=== PATIENT | male | born 1960 | race Caucasian/White ===

== ENCOUNTER 2019-01-30 09:23 | Outpatient (CLI) | payer OTHER, SELFPAY ==
[2019-01-30 11:19] LABS: ALT 31 U/L (12-78); AST 23 U/L (15-37); Albumin 3.9 g/dL (3.4-5.0); Alkaline Phosphatase 54 U/L (46-116); Bilirubin, Direct 0.28 mg/dL (0.00-0.20); Bilirubin, Total 2.1 mg/dL (0.2-1.0); Total Protein 7.3 g/dL (6.4-8.2)
== END 2019-01-30 09:43 ==
PROVIDERS: PCP Emergency Medicine; Visit Provider Emergency Medicine
DX: E80.4 Gilbert syndrome (principal)
CPT/HCPCS: 36415; 80076

== ENCOUNTER 2019-04-24 07:27 | Emergency (ER) | payer OTHER, SELFPAY ==
[2019-04-24 07:34] VITALS: BP 133/79; PULSE 75; RESP 15; TEMP 36.5; O2SAT 98
--- NOTE | 2019-04-24 07:59 | ED.GENADUL_ITS ---
Discharge Plan Disposition Patient Disposition: HOME Discharge Details Chief Complaint: Orthopedic Clinical Impression: Septic bursitis of elbow, Abrasion of elbow, right, Enthesopathy of elbow Primary Care Provider: Po Key ED Provider: Zhen Hinkle Home Meds and New Rx's Prescriptions: New cephalexin [Keflex] 500 mg capsule 500 mg PO QID Qty: 55 RF: 0 Discharge Instructions Instructions: Elbow Bursitis (ED) Additional Instructions: Take full 2-week course of antibiotic as prescribed. You should take a probiotic or eat yogurt daily while on antibiotics. Please contact your primary care physician to arrange follow-up. Call today to arrange time follow-up and reassessment in a few days. Return to the ER for any worsening or new concerning symptoms. Referrals: Po Key DO [Primary Care Provider] - Javier Funes MD [ [facility] STAFF PHYSICIAN] - 1 week (Please call orthopedic office tomorrow for arrangement of follow-up) Discharge Data Discharge Date/Time-TO BE ENTERED AT DEPARTURE: 04/24/19 10:05 Medical Decision Making <Maykel Mcgovern MD - Last Filed: 05/05/19 00:22> 8:08 -- 59-year-old male presents with right elbow pain and inflammation after mechanical fall yesterday in his barn with trauma to posterior elbow including small abrasion. Patient now with swelling and erythema posterior elbow. Suspect septic olecranon bursitis. Consider fracture. Plan to obtain x-ray of the elbow. Plan to treat with Bactrim and Keflex for additional anaerobic coverage. Patient's tetanus is up-to-date per nursing. <Zhen Hinkle NP - Last Filed: 04/25/19 18:20> Patient signed out to me pending radiological imaging. Imaging reviewed along with radiologist interpretation that shows Question of a fracture through the base of the enthesophyte at the olecranon. Given concern for infection and correlating fracture did decide to re-speak with orthopedics who was consulted previously. Spoke with Dr. Funes. He came and was able to evaluate the patient and recommended that patient be placed on high-dose penicillin or first generation cephalosporin. He also recommended to stop the Bactrim and that he would follow-up with patient in 1 week. Given that Keflex is first generation cephalosporin Bactrim was stopped. Prior to me realizing this patient did get single dose of penicillin in emergency department return precautions were discussed with patient. After discussion of diagnosis and plan of care patient has no further needs, questions, or concerns and states clear understanding to return to the emergency department for any worsening symptoms. HPI <Maykel Mcgovern MD - Last Filed: 05/05/19 00:22> General Mode of arrival: ambulatory . Date/Time Provider Initiated Documentation: 04/24/19 07:41 . Limitations to Documentation: no limitations . Information obtained by: patient . HPI Narrative: 59yo m presents with chief complaint of right elbow inflammation. Patient notes yesterday he was knocked over by a cow and landed on his right elbow impacting concrete floor of barn. Elbow was immediately painful. He did sustain a small cut to his posterior elbow. Today he has noticed increased swelling and redness of his posterior elbow. Symptoms are moderate. No modifiers. No associated fever. No other injury. Related Data Home Medications Medication Instructions Recorded Confirmed cephalexin [Keflex] 500 mg PO QID #55 cap 04/24/19 04/30/19 Previous Rx's Medication Instructions Recorded cephalexin [Keflex] 500 mg PO QID #55 cap 04/24/19 Allergies Allergy/AdvReac Type Severity Reaction Status Date / Time No Known Allergies Allergy Verified 04/30/19 10:05 General Stated Complaint: Orthopedic LARRY: 3 Review of Systems <Maykel Mcgovern MD - Last Filed: 05/05/19 00:22> Constitutional Denies fever(s) Musculoskeletal Reports as per HPI Integumentary/Breasts Reports as per HPI PFSH <Maykel Mcgovern MD - Last Filed: 05/05/19 00:22> Surgical History Colonoscopy - MAC (~2009) Colonoscopy - MAC (12/23/17) Family History Mother Heart disease Myocardial infarction Stroke Father Essential hypertension Hyperlipidemia Prostate cancer Brother No problems noted. Maternal Grandfather Lung cancer Paternal Grandfather Heart disease Stroke Parkinson disease Maternal Grandmother Depression Paternal Grandmother Essential hypertension Daughter No problems noted. Daughter No problems noted. Social History Smoking/Tobacco Use Status: Never Alcohol Intake: current Alcohol Intake frequency: holidays/special occasions only Alcohol type: beer Drug use: Never Substance use type: does not use Caregiver/Support person: No Household members: spouse Housing: house Pets and animals: Yes Pets and animals: cat(s) Sexually active: Yes Do you think of yourself as: straight/heterosexual Current gender identity: male What is your relationship status?: How often do you talk on the phone with friends or family?: three or more times per week How often do you get together with friends or relatives?: decline to answer How often do you attend restorationist or mandaeism services?: 1-3 times per year Do you belong to any clubs or organized social groups?: no Panel score (0-1 are the most socially isolated patients): 2 What type of physical activity do you participate in: walking Duration: < 15 minutes/day Frequency: 1-2 times per week Mary/Yarsani: Religion Special mayr needs: No Seatbelt use: always Drive intox or ride w/intox semi truck driver: No Do you feel safe at home: Yes Do you feel safe in your relationship?: Yes Exam <Maykel Mcgovern MD - Last Filed: 05/05/19 00:22> Const General: cooperative and no acute distress HENMT Head: normocephalic Mouth: moist mucous membranes Resp Auscultation: clear to auscultation bilaterally, no rales, no rhonchi and no wheezes Cardio Rate: regular rate and not tachycardic Rhythm: regular rhythm Pulses: radial pulses present on the right 2+ Skin Wounds: wounds noted (1 cm linear healing wound posterior elbow - seems superficial) Neuro General: alert, awake and tone normal Extrem General: no edema Right upper extremity: elbow/forearm Details: tenderness Location: of the olecranon, swelling, normal ROM, warmth and distal pulses intact; no deformity Course <Maykel Mcgovern MD - Last Filed: 05/05/19 00:22> Vital Signs Temperature 36.5 C 04/24/19 07:34 Pulse 75 04/24/19 07:34 Respiratory Rate 15 04/24/19 07:34 Blood Pressure 133/79 04/24/19 07:34 Pulse Oximetry 98 04/24/19 07:34 Temperature 36.5 C 04/24/19 07:34 Temperature Source Temporal Artery Scan 04/24/19 07:34 Pulse 75 04/24/19 07:34 Respiratory Rate 15 04/24/19 07:34 Respiratory Effort Non-Labored 04/24/19 07:37 Blood Pressure 133/79 04/24/19 07:34 Blood Pressure Position Sitting 04/24/19 07:34 Pulse Oximetry 98 04/24/19 07:34 Oxygen Delivery Method Room Air 04/24/19 07:34 Oxygen Flow Rate 0 04/24/19 07:34 Pain Level 5 04/24/19 07:38 Sign Out <Maykel Mcgovern MD - Last Filed: 05/05/19 00:22> Sign Out Data: Sign Out Comment: Care signed out to Teto Hinkle NP, plan to follow-up on x-ray and disposition patient. Last updated by Maykel Mcgovern MD at 04/24/19 08:28
--- NOTE | 2019-04-24 08:09 | DI.RAD_ITS ---
SYMPTOM/DIAGNOSIS: PAIN, FALL YESTERDAY RIGHT ELBOW: Three views. There are osseous densities seen at the insertion site of the triceps at the olecranon likely reflecting enthesophyte There is a lucency seen through the base and a fracture cannot be excluded. No other fracture or dislocation is seen. Dystrophic calcifications are seen adjacent to the medial epicondyle likely reflecting old injury. No joint effusion is seen. There is subcutaneous edema seen in the soft tissues. IMPRESSION: Question of a fracture through the base of the enthesophyte at the olecranon. Please correlate with the patient's site of pain. No other fracture or dislocation is seen..
[2019-04-24] MEDS: Cephalexin 500 MG CAP PO (08:14)
[2019-04-24] MEDS: Sulfameth/Trimeth DS TAB 1 TAB PO (08:15)
--- NOTE | 2019-04-24 08:17 | NUR.NOTE ---
pt medicated as per mdo tolorating po intake Nursing Note:
[2019-04-24] MEDS: Penicillin V POTASSIUM 500 MG TAB PO (09:48)
--- NOTE | 2019-04-24 09:49 | NUR.NOTE ---
0935-pt seen by orthopedics at bedsideNursing 0950- pt medicated as per mdo Note:
[2019-04-24 10:03] VITALS: BP 133/85; PULSE 66; RESP 15; TEMP 37; O2SAT 100
== END 2019-04-24 10:05 | disposition home or self-care (01) ==
PROVIDERS: Emergency Provider Nurse Practitioner Family; PCP Emergency Medicine
DX: M71.121 Other infective bursitis, right elbow (principal); S50.311A Abrasion of right elbow, initial encounter; M77.9 Enthesopathy, unspecified; W01.0XXA Fall on same level from slipping, tripping and stumbling without subsequent striking against object, initial encounter
CPT/HCPCS: 99283; 73080

== ENCOUNTER 2020-03-17 09:00 | Outpatient (REF) | payer OTHER, SELFPAY | END 2020-03-17 09:20 | LOC: LBN 09:00 | PROVIDERS: PCP Emergency Medicine; Visit Provider Nurse Practitioner Gerontology | DX: Z12.5 Encounter for screening for malignant neoplasm of prostate (principal); Z80.42 Family history of malignant neoplasm of prostate | CPT/HCPCS: 84153 ==

== ENCOUNTER 2020-08-05 09:45 | Outpatient (REF) | payer OTHER, SELFPAY ==
[2020-08-05 13:10] LABS: ALT 33 U/L (16-63); AST 25 U/L (15-37); Albumin 4.3 g/dL (3.4-5.0); Alkaline Phosphatase 60 U/L (46-116); Bilirubin, Direct 0.27 mg/dL (0.00-0.20); Bilirubin, Total 1.8 mg/dL (0.2-1.0); Total Protein 7.7 g/dL (6.4-8.2)
== END 2020-08-05 10:05 ==
LOC: LBN 09:45
PROVIDERS: PCP Emergency Medicine; Visit Provider Emergency Medicine
DX: K76.0 Fatty (change of) liver, not elsewhere classified (principal)
CPT/HCPCS: 80076

== ENCOUNTER 2021-02-06 17:49 | Outpatient (REF) | payer OTHER, SELFPAY ==
[2021-02-06 22:02] LABS: ALT 31 U/L (16-63); AST 23 U/L (15-37); Albumin 4.1 g/dL (3.4-5.0); Alkaline Phosphatase 63 U/L (46-116); Bilirubin, Direct 0.2 mg/dL (0.0-0.2); Bilirubin, Total 1.3 mg/dL (0.2-1.0); Total Protein 7.5 g/dL (6.4-8.2)
[2021-02-09 11:49] LABS: PSA, Screening 2.2 ng/mL (0.0-4.5)
== END 2021-02-06 17:50 | disposition home or self-care (01) ==
LOC: LBN 17:49
PROVIDERS: PCP Emergency Medicine; Visit Provider Emergency Medicine
DX: E80.4 Gilbert syndrome (principal); Z12.5 Encounter for screening for malignant neoplasm of prostate; Z80.42 Family history of malignant neoplasm of prostate
CPT/HCPCS: 80076; 84153

== ENCOUNTER 2022-05-04 03:03 | Outpatient (CLI) | payer OTHER, SELFPAY ==
[2022-05-04 08:41] LABS: ALT 43 U/L (16-63); AST 25 U/L (15-37); Albumin 3.7 g/dL (3.4-5.0); Alkaline Phosphatase 54 U/L (46-116); Anion Gap 7.2 mmol/L (3-11); BUN 18 mg/dL (7-18); Bilirubin, Total 2.2 mg/dL (0.2-1.0); CO2 25.8 mmol/L (21.0-32.0); Calculated LDL 119 mg/dL (<100); Chloride 104 mmol/L (98-107); Cholesterol 218 mg/dL (<200); Glucose 103 mg/dL (74-106); HDL Cholesterol 41 mg/dL (40-60); Potassium 4.1 mmol/L (3.5-5.1); Sodium 137 mmol/L (136-145); Total Protein 7.2 g/dL (6.4-8.2); Triglyceride 291 mg/dL (<150)
[2022-05-04 19:16] LABS: PSA, Screening 2.4 ng/mL (<=4.5)
[2022-05-05 10:32] LABS: Hepatitis C Ab w Rflx HCV PCR Negative (Negative)
[2022-05-05 10:47] LABS: HIV-1/2 Ag & Ab Screen Negative (Negative)
== END 2022-05-04 03:04 | disposition home or self-care (01) ==
LOC: LBO 03:03
PROVIDERS: Family Medicine; PCP Nurse Practitioner Family; Visit Provider Nurse Practitioner Gerontology
DX: N13.8 Other obstructive and reflux uropathy (principal); N40.1 Benign prostatic hyperplasia with lower urinary tract symptoms; Z80.42 Family history of malignant neoplasm of prostate; I10 Essential (primary) hypertension; Z11.59 Encounter for screening for other viral diseases; Z13.6 Encounter for screening for cardiovascular disorders; Z11.4 Encounter for screening for human immunodeficiency virus [HIV]; Z12.5 Encounter for screening for malignant neoplasm of prostate
CPT/HCPCS: 36415; 80053; 80061; 84153; 86803; 87389

== ENCOUNTER 2023-04-07 03:17 | Outpatient (CLI) | payer OTHER, SELFPAY ==
[2023-04-07 12:44] LABS: Calculated LDL 117 mg/dL (<100); Cholesterol 194 mg/dL (<200); HDL Cholesterol 41 mg/dL (40-60); Triglyceride 181 mg/dL (<150)
[2023-04-07 12:59] LABS: Hemoglobin A1C 5.4 % (<5.7)
[2023-04-07 20:14] LABS: PSA, Screening 3.1 ng/mL (<=4.5)
== END 2023-04-07 03:18 | disposition home or self-care (01) ==
LOC: LOS 03:17
PROVIDERS: PCP Nurse Practitioner Family; Visit Provider Nurse Practitioner Family
DX: E78.5 Hyperlipidemia, unspecified (principal); N40.1 Benign prostatic hyperplasia with lower urinary tract symptoms; N13.8 Other obstructive and reflux uropathy; Z12.5 Encounter for screening for malignant neoplasm of prostate; Z13.1 Encounter for screening for diabetes mellitus
CPT/HCPCS: 36415; 80061; 84153; 83036

== ENCOUNTER 2023-10-21 01:41 | Outpatient (CLI) | payer OTHER, SELFPAY | END 2023-10-21 01:42 | disposition home or self-care (01) | PROVIDERS: PCP Nurse Practitioner Family; Visit Provider Nurse Practitioner Gerontology | DX: N13.8 Other obstructive and reflux uropathy (principal); N40.1 Benign prostatic hyperplasia with lower urinary tract symptoms; R39.9 Unspecified symptoms and signs involving the genitourinary system; Z80.42 Family history of malignant neoplasm of prostate | CPT/HCPCS: 36415; 84153 ==

== ENCOUNTER 2024-04-16 03:52 | Outpatient (CLI) | payer OTHER, SELFPAY ==
[2024-04-16 08:12] LABS: Hemoglobin A1C 5.4 % (<5.7)
[2024-04-16 08:56] LABS: Calculated LDL 104 mg/dL (<100); Cholesterol 173 mg/dL (<200); HDL Cholesterol 39 mg/dL (40-60); Triglyceride 150 mg/dL (<150)
[2024-04-16 17:46] LABS: PSA, Diagnostic 4.3 ng/mL (<=4.5)
== END 2024-04-16 03:53 | disposition home or self-care (01) ==
LOC: LBO 03:52
PROVIDERS: PCP Nurse Practitioner Family; Visit Provider Nurse Practitioner Gerontology
DX: Z13.1 Encounter for screening for diabetes mellitus (principal); Z13.220 Encounter for screening for lipoid disorders; N40.1 Benign prostatic hyperplasia with lower urinary tract symptoms; N13.8 Other obstructive and reflux uropathy; Z80.42 Family history of malignant neoplasm of prostate
CPT/HCPCS: 36415; 80061; 83036; 84153

== ENCOUNTER 2024-07-16 03:07 | Outpatient (CLI) | payer OTHER, SELFPAY | END 2024-07-16 03:08 | disposition home or self-care (01) | LOC: LBO 03:07 | PROVIDERS: PCP Nurse Practitioner Family; Visit Provider Nurse Practitioner Gerontology | DX: N40.1 Benign prostatic hyperplasia with lower urinary tract symptoms (principal); N13.8 Other obstructive and reflux uropathy; Z80.42 Family history of malignant neoplasm of prostate; R97.20 Elevated prostate specific antigen [PSA] | CPT/HCPCS: 36415; 84153 ==

== ENCOUNTER 2025-01-14 03:00 | Outpatient (CLI) | payer OTHER, SELFPAY ==
[2025-01-14 18:09] LABS: PSA, Screening 4.4 ng/mL (<=4.5)
== END 2025-01-14 03:01 | disposition home or self-care (01) ==
PROVIDERS: PCP Nurse Practitioner Family; Visit Provider Nurse Practitioner Gerontology
DX: N40.1 Benign prostatic hyperplasia with lower urinary tract symptoms (principal); N13.8 Other obstructive and reflux uropathy; Z80.42 Family history of malignant neoplasm of prostate; R97.20 Elevated prostate specific antigen [PSA]
CPT/HCPCS: 36415; 84153

== ENCOUNTER 2025-02-01 15:27 | Emergency (ER) | payer OTHER, SELFPAY ==
[2025-02-01 15:29] VITALS: BP 209/100; PULSE 63; RESP 12; TEMP 36.5; O2SAT 98
--- NOTE | 2025-02-01 16:07 | DI.CT_ITS ---
Exam(s) CT PELVIC WO EXAM: CT PELVIC WO CLINICAL HISTORY: penile trauma. TECHNIQUE: Imaging Protocol: Axial computed tomography images with coronal and sagittal reformatted images were created and reviewed. CONTRAST MATERIAL: Oral: No COMPARISON: No exams were available for comparison FINDINGS: PELVIS: Abdominal Aorta: Abdominal portion non-dilated. Bowel: There is diverticulosis seen in the colon but no evidence of acute diverticulitis. No evidenc e of bowel obstruction or bowel wall thickening. Appendix is unremarkable. Peritoneal Cavity: No ascites, collection or mesenteric inflammatory response. Soft Tissues: There is a small umbilical hernia. There is a small fat containing right inguinal gloria ia. Bladder: There is high density material seen in the base of the urinary bladder which may represent h emorrhage or clot. Urinary bladder is otherwise unremarkable. Reproductive Organs: The prostate gland is markedly enlarged. Lymph Nodes: Within normal limits. Bones: Within normal limits. IMPRESSION: 1. No acute fracture or dislocation. 2. High density material seen in the base of the urinary bladder likely reflecting hemorrhage. 3. Findings were discussed with Dr. Delvalle at 4:18 p.m. on 02/01/2025. RADIATION DOSE DELIVERED: 463.33mGy.cmTotal DLP 463.33mGy.cmTotal DLP DATA REPOSITORY: All CT scans at this facility are submitted to the National Radiology Data Registry (NRDR) Dose Index Registry (DIR) with the [place] [employer] (ACR). RADIATION OPTIMIZATION: All CT scans at this facility use at least one of these dose optimization te chniques: automated exposure control; mA and/or kV adjustment per patient size (includes targeted exa ms where dose is matched to clinical indication); or iterative reconstruction.
[2025-02-01] MEDS: Lidocaine 2% Jelly 6 ML SYR (16:30)
[2025-02-01 16:32] LABS: Bilirubin Negative (Negative); Blood Large (Negative); Clarity Clear (Clear); Glucose Negative (Negative); Ketones Negative (Negative); Leukocyte Esterase Negative (Negative); Nitrite Negative (Negative); Urobilinogen 0.2 mg/dL (Up to 0.2)
[2025-02-01 16:45] LABS: Bacteria Negative HPF (Negative); C & S Indicated? No; Casts Negative LPF (Negative); Crystals Few Amorphous HPF (Negative); Epithelial Cells Rare HPF (Negative); Mucus Negative (Negative); WBC Negative HPF (0-5)
--- NOTE | 2025-02-01 16:50 | W.ED.GENAD ---
Discharge Plan Disposition Patient Disposition: Home Discharge Details Clinical Impression: Perineal trauma, Hematuria, Acute urinary retention Primary Care Provider: Art Calderon ED Provider: Alvarado Delvalle Home Meds and New Rx's Prescriptions: No Action calcium carbonate [Tums] 200 mg calcium (500 mg) tablet,chewable 600 mg PO DAILY PRN tamsulosin [Flomax] 0.4 mg capsule 0.4 mg PO DAILY Qty: 90 3RF Discharge Instructions Instructions: Urinary Retention (DC) Additional Instructions: Palencia catheter will help drain your bladder. Make sure you are drinking lots of water. Return to the emergency department if the catheter stops draining. You may continue to see a little bit of blood in the catheter bag. If the tubing becomes clotted with blood that would be a reason to return to the ER. You have been referred to urology for follow-up next week with a voiding trial. They should contact you Tuesday with your appointment time. HPI General Date/Time Provider Initiated Documentation: 02/01/25 15:29. Limitations to Documentation: no limitations. Information obtained by: patient. HPI Narrative: 65-year-old gentleman with past medical history of BPH presents for evaluation of hematuria. Last night around 5:00 he was getting out of the bathtub when he slipped and fell and straddled the bathtub. He reports pain at that time, but denies any bleeding from his penis at that time. He reports that today he has been having bleeding with urination and some difficulty urinating. He reports that he feels the sensation that he needs to go but is unable to get very much urine out. He went to urgent care and was referred to the emergency department for further workup. Related Data Home Medications ?Medication ?Instructions ?Recorded ?Confirmed calcium carbonate (Tums) 600 mg PO DAILY PRN 03/12/20 02/01/25 tamsulosin 0.4 mg capsule (Flomax) 0.4 mg PO DAILY #90 caps 04/23/24 02/01/25 Previous Rx's ?Medication ?Instructions ?Recorded tamsulosin 0.4 mg capsule (Flomax) 0.4 mg PO DAILY #90 caps 04/23/24 Allergies Allergy/AdvReac Type Severity Reaction Status Date / Time No Known Allergies Allergy Verified 02/01/25 15:33 General Stated Complaint: Male Reproductive Problem LARRY: 3 Exam Narrative Exam Narrative: Review of Systems: All systems reviewed & are unremarkable except as noted in HPI and below Well-developed, no acute distress NCAT Unlabored respiratory effort Nondistended abdomen , soft nontender no CVA tenderness exam performed with RN tile fitter no testicular pain or swelling or bruising noted, no penile shaft deformity or tenderness, no blood at the urethral meatus Course Vital Signs Vital signs: Vital Signs Temperature 36.5 C 02/01/25 15:29 Pulse 63 02/01/25 15:29 Respiratory Rate 12 02/01/25 15:29 Blood Pressure 209/100 H 02/01/25 15:29 Pulse Oximetry 98 02/01/25 15:29 Temperature 36.5 C 02/01/25 15:29 Temperature Source Oral 02/01/25 15:29 Pulse 63 02/01/25 15:29 Respiratory Rate 12 02/01/25 15:29 Blood Pressure 209/100 H 02/01/25 15:29 Blood Pressure Position Sitting 02/01/25 15:29 Pulse Oximetry 98 02/01/25 15:29 Oxygen Delivery Method Room Air 02/01/25 15:29 Oxygen Flow Rate 0 02/01/25 15:29 Pain Level 1 02/01/25 15:29 Lab/Test Results Lab/Test Results: Laboratory Tests Range/Units 02/01/25 15:35 Urine Color (Yellow) Yellow Urine Clarity (Clear) Clear Urine pH (5-8) 5.0 Ur Specific [place] (1.005-1.025) 1.010 Urine Protein (Neg-Trace) mg/dL Negative Urine Ketones (Negative) mg/dL Negative Urine Blood (Negative) Large H Urine Nitrite (Negative) Negative Urine Bilirubin (Negative) Negative Urine Urobilinogen (Up to 0.2) mg/dL 0.2 Ur Leukocyte Esterase (Negative) Negative Urine RBC (0-2) HPF 10-20 H Urine WBC (0-5) HPF Negative Ur Epithelial Cells (Negative) HPF Rare Urine Crystals (Negative) HPF Few Amorphous Urine Bacteria (Negative) HPF Negative Urine Casts (Negative) LPF Negative Urine Mucus (Negative) Negative Ur Culture Indicated? No Urine Glucose (Negative) mg/dL Negative Medical Decision Making Emergent evaluation of perineal trauma. Initial differential includes penile fracture, urethral injury, hematuria. Patient not on blood thinner coagulant. Unlikely kidney stone or infectious etiology given history and time course. Examination is benign. Has mild signs of urinary retention on examination. And bladder scan with almost 300 cc of retained urine. CT imaging obtained. No penile fracture noted. There is signs of hemorrhage in the bladder. Palencia catheter placed and bedside irrigation performed. Bag draining clearish pink fluid. Discussed return precautions. Patient sent home with catheter in place and follow-up arranged for urology this week for voiding trial. 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 Maternal Grandfather , 80s Lung cancer Paternal Grandfather , 79 Heart disease Stroke Parkinson disease Maternal Grandmother , 80s Depression Paternal Grandmother , 80 Essential hypertension Daughter No problems noted. Daughter No problems noted. Social History (Updated 03/29/22 @ 16:42 by Elena Benítez) Smoking/Tobacco Use Status: Never Tobacco: How many years used: 0 Smoking risk assessment performed?: Yes Alcohol Intake: current Alcohol Intake frequency: holidays/special occasions only Alcohol type: beer Drug use: Never Substance use type: does not use Caregiver/Support person: No Household members: spouse Housing: house Communication Needs: Corrective Lenses Pets and animals: Yes Pets and animals: cat(s) Sexually active: Yes Do you think of yourself as: straight/heterosexual Current gender identity: male What is your relationship status?: How often do you talk on the phone with friends or family?: once per week How often do you get together with friends or relatives?: once per week How often do you attend scientology or sabianist services?: decline to answer Do you belong to any clubs or organized social groups?: no Panel score (0-1 are the most socially isolated patients): 1 What type of physical activity do you participate in: walking Duration: < 15 minutes/day Frequency: 1-2 times per week Mary/Caodaism: Scientologist Special mary needs: No Seatbelt use: always Helmet use: No Drive intox or ride w/intox 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
[2025-02-01 17:36] VITALS: BP 162/95; PULSE 68; RESP 16; O2SAT 99
== END 2025-02-01 17:38 | disposition home or self-care (01) ==
PROVIDERS: Emergency Provider Emergency Medicine; PCP Nurse Practitioner Family
DX: S39.848A Other specified injuries of external genitals, initial encounter (principal); R33.8 Other retention of urine; W22.8XXA Striking against or struck by other objects, initial encounter; Y93.E1 Activity, personal bathing and showering; Y92.012 Bathroom of single-family (private) house as the place of occurrence of the external cause
CPT/HCPCS: 99284; 72192; 81003; 81015

== ENCOUNTER 2025-02-01 19:34 | Emergency (ER) | payer OTHER, SELFPAY ==
[2025-02-01 19:37] VITALS: BP 161/86; PULSE 73; RESP 18; TEMP 36.8; O2SAT 96
--- NOTE | 2025-02-01 19:43 | ED.GENADUL_ITS ---
Discharge Plan Disposition Patient Disposition: Home Condition: Stable Discharge Details Clinical Impression: Patton catheter problem Primary Care Provider: Art Calderon ED Provider: William Lebron Home Meds and New Rx's Prescriptions: Continued calcium carbonate [Tums] 200 mg calcium (500 mg) tablet,chewable 600 mg PO DAILY PRN tamsulosin [Flomax] 0.4 mg capsule 0.4 mg PO DAILY Qty: 90 3RF Discharge Instructions Instructions: How to Care for Your Patton Catheter Additional Instructions: You were seen in the emergency department for your Patton catheter subjective blockage, as you became undressed here in the emergency department you have achieved relief, some positional change in the fluid levels of the tubing is normal, please keep track of the output, as long as there is increasing volume into the bag after emptying it it should be functioning properly. Please return for any acute concerns like Patton catheter obstruction, flank pain, fever, worsening abdominal pain. Referrals: [facility] [Provider Group] Art Calderon, [employer] [Primary Care Provider] - Discharge Data Discharge Date/Time-TO BE ENTERED AT DEPARTURE: 02/01/25 20:23 HPI General Date/Time Provider Initiated Documentation: 02/01/25 19:42 . HPI Narrative: 65 year-old male presents to ED today by POV/ambulating with a chief complaint of feels his patton catheter is not draining properly, states there are fluid/air levels moving in the catheter tube especialy when he changes positions/bends over, with onset after being discharged only hours ago. Quality described as not painful, no radiation to fever, flank pain, suprapubic distention. Severity is described as 0/10. Palliating factors include nothing specific attempted. Provoking factors include nothing specific. Patient not anticoagulated. Related Data Home Medications ?Medication ?Instructions ?Recorded ?Confirmed calcium carbonate (Tums) 600 mg PO DAILY PRN 03/12/20 02/01/25 tamsulosin 0.4 mg capsule (Flomax) 0.4 mg PO DAILY #90 caps 04/23/24 02/01/25 Previous Rx's ?Medication ?Instructions ?Recorded tamsulosin 0.4 mg capsule (Flomax) 0.4 mg PO DAILY #90 caps 04/23/24 Allergies Allergy/AdvReac Type Severity Reaction Status Date / Time No Known Allergies Allergy Verified 02/01/25 19:41 General Stated Complaint: Urinary LARRY: 4 Review of Systems All systems reviewed & are unremarkable except as noted in HPI and below Exam Narrative Exam Narrative: GENERAL APPEARANCE: Well-nourished, non-toxic, awake and alert, atraumatic, no acute distress. SKIN: Warm, pink, dry, intact, without rashes/lesions/ulcerations. HEAD: Normocephalic, atraumatic, normal hair distribution for gender/age. EYES: Normal conjunctiva, no exudates on lids/lashes. ENT: Nares patent, no circumoral cyanosis, no facial swelling NECK: Supple, trachea midline, painless cervical ROM. LUNGS/CHEST: Non-labored respirations, normal A/P diameter, symmetrical expansion, no chest wall deformity HEART (CV/PV): No peripheral edema, no JVD. ABDOMEN: Soft, non-distended, no guarding, no suprapubic distention, patton catheter draining well. MSK: Normal ROM, no swelling/deformity to bilateral UEs or LEs, moving all extremities without weakness, no cyanosis, spine midline without tenderness, normal curvature. NEURO: Mental Status AAOx4 - alert to person, place, time, events No facial droop, no forehead involvement. Motor: No focal weakness - strength 5/5 in bilateral UEs and LEs, proximal and distal, symmetric. Sensory: sensation intact to light touch globally. Gait normal: patient ambulated without ataxia into ED room. PSYCH: euthymic, cooperative, pleasant, appropriate speech Course Vital Signs Vital signs: Vital Signs Temperature 36.8 C 02/01/25 19:37 Pulse 73 02/01/25 19:37 Respiratory Rate 18 02/01/25 19:37 Blood Pressure 161/86 H 02/01/25 19:37 Pulse Oximetry 96 02/01/25 19:37 Temperature 36.8 C 02/01/25 19:37 Temperature Source Temporal Artery Scan 02/01/25 19:37 Pulse 73 02/01/25 19:37 Respiratory Rate 18 02/01/25 19:37 Blood Pressure 161/86 H 02/01/25 19:37 Blood Pressure Position Sitting 02/01/25 19:37 Pulse Oximetry 96 02/01/25 19:37 Oxygen Delivery Method Room Air 02/01/25 19:37 Oxygen Flow Rate 0 02/01/25 19:37 Pain Level 0 02/01/25 19:37 Medical Decision Making This dictation utilizes [id number] dictation software and may contain unedited grammatical errors. 65 year-old male presents to ED today by POV/ambulating with a chief complaint of feels his patton catheter is not draining properly, states there are fluid/air levels moving in the catheter tube especialy when he changes positions/bends over, with onset after being discharged only hours ago. Quality described as not painful, no radiation to fever, flank pain, suprapubic distention. Severity is described as 0/10. Palliating factors include nothing specific attempted. Provoking factors include nothing specific. Patients' medical history: Acute urinary retention and hematuria. Family and social history: Noncontributory. Pertinent exam findings / vital signs include no suprapubic distention, as he was doffing his clothes he feels that whatever the patton was positioned fixed itself, wishes to return home. Differential / pathologies of concern include Patton catheter problem. Diagnostic studies of: - None. Interventions of: - None. ED Course/Assessment/Plan: 65-year-old male who was just discharged within a couple hours with a new leg bag and Patton catheter, he feels that there is something wrong with that even though the level has increased since discharge in the leg bag, he states that the air-fluid levels in the catheter tubing move up and down with his positional changes which is likely a normal finding. As he doffed his jeans he felt relief. And wishes to be discharged home, there is no evidence of any increasing urinary retention or distention or Patton catheter obstruction at this time and I did discharge the patient home. Findings not consistent with patton catheter obstruction. Disposition of Patton Catheter problem. Patient verbalized understanding of the plan and return to ED criteria and engaged in shared decision making. Medical Records Medical records reviewed: Yes I reviewed the patient's medical records. Quality:SDOH Health Related Social Needs: No Data to Display PFSH All Active Problems Patton catheter problem (Acute) Acute urinary retention (Acute) Hematuria (Acute) Perineal trauma (Acute) Overweight (Acute) Skin lesion (Acute) crown of scalp BPH w urinary obs/LUTS (Acute) Sensorineural hearing loss, bilateral (Acute 03/24/17) Hyperlipidemia (Acute) Gilbert syndrome (Acute 11/04/17) Fatty liver disease, nonalcoholic (Acute 11/04/17) 2017, a ultrasound, normal LFTs Family history of prostate cancer (Acute 09/12/13) Esophageal reflux (Acute) Calculus of gallbladder without cholecystitis without obstruction (Acute 06/29) asymptomatic Surgical History Colonoscopy - MAC (12/23/17) NEG Colonoscopy - MAC (~2009) NEG Family History Mother , 62 Heart disease Myocardial infarction Stroke Father , 91 Essential hypertension Hyperlipidemia Prostate cancer Brother No problems noted. Maternal Grandfather , 80s Lung cancer Paternal Grandfather , 79 Heart disease Stroke Parkinson disease Maternal Grandmother , 80s Depression Paternal Grandmother , 80 Essential hypertension Daughter No problems noted. Daughter No problems noted. Social History Smoking/Tobacco Use Status: Never Tobacco: How many years used: 0 Smoking risk assessment performed?: Yes Alcohol Intake: current Alcohol Intake frequency: holidays/special occasions only Alcohol type: beer Drug use: Never Substance use type: does not use Caregiver/Support person: No Household members: spouse Housing: house Communication Needs: Corrective Lenses Pets and animals: Yes Pets and animals: cat(s) Sexually active: Yes Do you think of yourself as: straight/heterosexual Current gender identity: male What is your relationship status?: How often do you talk on the phone with friends or family?: once per week How often do you get together with friends or relatives?: once per week How often do you attend yazidi or jewish services?: decline to answer Do you belong to any clubs or organized social groups?: no Panel score (0-1 are the most socially isolated patients): 1 What type of physical activity do you participate in: walking Duration: < 15 minutes/day Frequency: 1-2 times per week Mary/Scientologist: Evangelical Special mary needs: No Seatbelt use: always Helmet use: No Drive intox or ride w/intox fuel oil truck driver: No Do you feel safe at home: Yes Do you feel safe in your relationship?: Yes
== END 2025-02-01 20:23 | disposition home or self-care (01) ==
PROVIDERS: Emergency Provider Physician Assistant; PCP Nurse Practitioner Family
DX: T83.098A Other mechanical complication of other urinary catheter, initial encounter (principal)
CPT/HCPCS: 99282

== ENCOUNTER 2025-02-03 09:22 | Emergency (ER) | payer OTHER, SELFPAY ==
[2025-02-03 09:24] VITALS: BP 153/109; PULSE 65; RESP 12; TEMP 36.7; O2SAT 97
--- NOTE | 2025-02-03 09:26 | W.ED.GENAD ---
Discharge Plan Disposition Patient Disposition: Home Discharge Details Clinical Impression: Palencia catheter problem Primary Care Provider: Art Calderon ED Provider: Gonsalo Young Home Meds and New Rx's Prescriptions: Continued calcium carbonate [Tums] 200 mg calcium (500 mg) tablet,chewable 600 mg PO DAILY PRN tamsulosin [Flomax] 0.4 mg capsule 0.4 mg PO DAILY Qty: 90 3RF Discharge Instructions Additional Instructions: You are seen in the emergency department for your catheter problem. As we discussed you are not retaining urine. Please return to the emergency department if you develop pain in your stomach any blood in your Palencia catheter bag or if you do not have any urine in your Palencia catheter bag for 8 hours or more. Otherwise please await the urology follow-up phone call tomorrow. Please also return if you develop fevers. For your pain please take medications as follows: 1. Take acetaminophen (Tylenol), 1,000 mg (two 500 mg tabs) every 6 hours [2. Take ibuprofen (Advil), 400 mg every 6 hours.] HPI General Date/Time Provider Initiated Documentation: 02/03/25 09:23. HPI Narrative: MDM This is an overall very well-appearing normothermic and not tachycardic 65-year-old male with recent indwelling Palencia and likely bladder spasm with occasional urine leaking out of the Palencia but reassuring exam for which patient will receive empiric trial of discharge with expectant outpatient management. No pain out of portion to suggest Wilmer's gangrene. Patient is 66 cc on nursing BladderScan so my suspicion is low for acute urinary retention. Patient had 10 cc in his Palencia balloon so I do not feel his balloon has burst. He is having no persistent hematuria so I do not feel he requires a triple-lumen catheter to be placed. No abdominal pain to suggest appendicitis. No diarrhea to suggest diverticulitis. No recurrent trauma to suggest an additional perineal injury. Patient and I discussed that he should return to the emergency department if he developed any abdominal pain did not make any urine in his Palencia catheter bag at 8 hours or if he developed recurrent hematuria. Urology will call patient in the morning tomorrow for follow-up. HPI This is a 65-year-old male with history of recent perineal injury and Palencia catheter placement secondary to hematuria. Department via private vehicle in the setting of urine leaking out of the site of his Palencia catheter. Patient was initially seen in the emergency department 2 days ago when he had a Palencia catheter placed following a CT scan. He said that his Palencia catheter was working well yesterday though at 1 point he had a bowel movement. He difficulty having a bowel movement while sitting on the toilet so he went up to the garage to have a bowel movement as if he was out in the menard. He subsequently noticed some leaking at the site of his Palencia catheter. In 6 AM he got up and emptied his Palencia catheter bag. Subsequently he noticed that there was some urine leaking at the site of the catheter. He emptied his Palencia catheter bag at 6 AM. He had no hematuria. No fevers no abdominal pain. He is not anticoagulated. He continues to take his tamsulosin. Exam General: Well-appearing in no acute distress speaking in complete sentences. Head: Normocephalic, atraumatic. Eye: Extraocular eye movements intact. No conjunctival injection. No scleral icterus. Ear, nose, mouth, throat: Grossly normal inspection. Normal voice, handling secretions normally. Neck: Trachea midline. Cardiovascular: Well-perfused distal extremities. Respiratory: Nonlabored respiration. Gastrointestinal: Nondistended abdomen. : Uncircumcised penis Palencia catheter placed. No blood at meatus. No acute rash. Palencia catheter with approximately 110 cc of yellow urine in bag. Per nursing patient had bladder scan of 66 cc in balloon was patent. Musculoskeletal: No edema. Moving all 4 extremities spontaneously. Skin: Normal for age and race, grossly normal temperature and turgor. No acute rash. Neurologic: Alert and appropriate, no apparent acute deficits. Psychiatric: Mood and manner are appropriate. Grooming and personal hygiene are appropriate. Related Data Home Medications ?Medication ?Instructions ?Recorded ?Confirmed calcium carbonate (Tums) 600 mg PO DAILY PRN 03/12/20 02/03/25 tamsulosin 0.4 mg capsule (Flomax) 0.4 mg PO DAILY #90 caps 04/23/24 02/03/25 Previous Rx's ?Medication ?Instructions ?Recorded tamsulosin 0.4 mg capsule (Flomax) 0.4 mg PO DAILY #90 caps 04/23/24 Allergies Allergy/AdvReac Type Severity Reaction Status Date / Time No Known Allergies Allergy Verified 02/03/25 09:28 General Stated Complaint: Urinary LARRY: 4 Course Vital Signs Vital signs: Vital Signs Temperature 36.7 C 02/03/25 09:24 Pulse 65 02/03/25 09:24 Respiratory Rate 12 02/03/25 09:24 Blood Pressure 153/109 H 02/03/25 09:24 Pulse Oximetry 97 02/03/25 09:24 Temperature 36.7 C 02/03/25 09:24 Temperature Source Oral 02/03/25 09:24 Pulse 65 02/03/25 09:24 Respiratory Rate 12 02/03/25 09:24 Blood Pressure 153/109 H 02/03/25 09:24 Blood Pressure Position Sitting 02/03/25 09:24 Pulse Oximetry 97 02/03/25 09:24 Oxygen Delivery Method Room Air 02/03/25 09:24 Oxygen Flow Rate 0 02/03/25 09:24 Pain Level 0 02/03/25 09:24 Medical Decision Making Quality:SDOH Health Related Social Needs: No Data to Display PFSH All Active Problems (Updated 02/03/25 @ 09:44 by Gonsalo Young MD) Palencia catheter problem (Acute) Acute urinary retention (Acute) Hematuria (Acute) Perineal trauma (Acute) Overweight (Acute) Skin lesion (Acute) crown of scalp BPH w urinary obs/LUTS (Acute) Sensorineural hearing loss, bilateral (Acute 03/24/17) Hyperlipidemia (Acute) 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 Maternal Grandfather , 80s Lung cancer Paternal Grandfather , 79 Heart disease Stroke Parkinson disease Maternal Grandmother , 80s Depression Paternal Grandmother , 80 Essential hypertension Daughter No problems noted. Daughter No problems noted. Social History Smoking/Tobacco Use Status: Never Tobacco: How many years used: 0 Smoking risk assessment performed?: Yes Alcohol Intake: current Alcohol Intake frequency: holidays/special occasions only Alcohol type: beer Drug use: Never Substance use type: does not use Caregiver/Support person: No Household members: spouse Housing: house Communication Needs: Corrective Lenses Pets and animals: Yes Pets and animals: cat(s) Sexually active: Yes Do you think of yourself as: straight/heterosexual Current gender identity: male What is your relationship status?: How often do you talk on the phone with friends or family?: once per week How often do you get together with friends or relatives?: once per week How often do you attend bahai or mormonism services?: decline to answer Do you belong to any clubs or organized social groups?: no Panel score (0-1 are the most socially isolated patients): 1 What type of physical activity do you participate in: walking Duration: < 15 minutes/day Frequency: 1-2 times per week Mary/Gnosticism: Latter Day Special mary needs: No Seatbelt use: always Helmet use: No Drive intox or ride w/intox driver's education instructor: No Do you feel safe at home: Yes Do you feel safe in your relationship?: Yes
== END 2025-02-03 09:50 | disposition home or self-care (01) ==
PROVIDERS: Emergency Provider Emergency Medicine; PCP Nurse Practitioner Family
DX: T83.9XXA Unspecified complication of genitourinary prosthetic device, implant and graft, initial encounter (principal)
CPT/HCPCS: 99283 ×2; 51798

== ENCOUNTER 2025-04-18 01:27 | Outpatient (CLI) | payer OTHER, SELFPAY ==
[2025-04-18 08:15] LABS: Hemoglobin A1C 5.2 % (<5.7)
[2025-04-18 08:17] LABS: ALT 26 U/L (16-63); AST 18 U/L (15-37); Albumin 3.9 g/dL (3.4-5.0); Alkaline Phosphatase 63 U/L (46-116); Anion Gap 6.6 mmol/L (3-11); BUN 12 mg/dL (7-18); Bilirubin, Total 2.1 mg/dL (0.2-1.0); CO2 28.4 mmol/L (21.0-32.0); Calcium 9.2 mg/dL (8.5-10.1); Calculated LDL 102 mg/dL (<100); Chloride 104 mmol/L (98-107); Cholesterol 177 mg/dL (<200); Estimated GFR 102.25 (mL/min/1.73m2); Glucose 105 mg/dL (74-106); HDL Cholesterol 36 mg/dL (>or=40); Potassium 4.4 mmol/L (3.5-5.1); Sodium 139 mmol/L (136-145); Total Protein 7.4 g/dL (6.4-8.2); Triglyceride 199 mg/dL (<150)
[2025-04-18 19:12] LABS: PSA, Diagnostic 5.1 ng/mL (<=4.5)
== END 2025-04-18 01:28 | disposition home or self-care (01) ==
LOC: LBO 01:27
PROVIDERS: PCP Nurse Practitioner Family; Visit Provider Nurse Practitioner Gerontology
DX: Z13.220 Encounter for screening for lipoid disorders (principal); Z13.1 Encounter for screening for diabetes mellitus; K76.0 Fatty (change of) liver, not elsewhere classified; N40.1 Benign prostatic hyperplasia with lower urinary tract symptoms; N13.8 Other obstructive and reflux uropathy; Z80.42 Family history of malignant neoplasm of prostate
CPT/HCPCS: 36415; 80053; 80061; 83036; 84153

== ENCOUNTER 2025-07-10 03:48 | Outpatient (CLI) | payer OTHER, SELFPAY ==
[2025-07-10 19:07] LABS: PSA, Diagnostic 4.0 ng/mL (<=4.5)
== END 2025-07-10 03:49 | disposition home or self-care (01) ==
LOC: LBO 03:49
PROVIDERS: PCP Nurse Practitioner Family; Visit Provider Nurse Practitioner Gerontology
DX: N40.1 Benign prostatic hyperplasia with lower urinary tract symptoms (principal); N13.8 Other obstructive and reflux uropathy; Z80.42 Family history of malignant neoplasm of prostate; R97.20 Elevated prostate specific antigen [PSA]
CPT/HCPCS: 36415; 84153